=== PATIENT | male | born 1945 | race Caucasian/White ===

== ENCOUNTER 2021-05-12 07:55 | Outpatient (CLI) | payer OTHER, SELFPAY ==
--- NOTE | 2021-05-12 17:24 | WPDSIXMINUTE ---
Six Minute Walk Procedure Procedure Performed Pulmonary Stress Test (6 min walk) Six Minute Walk This is a 6 minutes walk test. The test was performed and interpreted in accordance with the 2014 ERS/ATS task force guidelines. The patient used his personal portable oxygen concentrator on 2 L at continuous flow while walking and a wheeled walker. Findings: The patient's resting oxygen saturation on 2 L NC measured by pulse oximetry was 96% and her heart rate was 66 bpm. Patient ambulated for 145 meters and oxygen saturation remained 96 to 98% on 2 L NC. Heart rate at the end of the study was 90 bpm. There are no prior studies for comparison.
== END 2021-05-12 07:56 | disposition home or self-care (01) ==
PROVIDERS: PCP Internal Medicine; Visit Provider Nurse Practitioner
DX: J44.9 Chronic obstructive pulmonary disease, unspecified (principal)
CPT/HCPCS: 94618

== ENCOUNTER 2022-01-25 12:27 | Outpatient (CLI) | payer OTHER, SELFPAY ==
[2022-01-25 13:00] VITALS: PULSE 95; O2SAT 94
[2022-01-25 13:02] VITALS: PULSE 117; O2SAT 87
[2022-01-25 13:03] VITALS: PULSE 120; O2SAT 87
[2022-01-25 13:04] VITALS: PULSE 118; O2SAT 93
[2022-01-25 13:06] VITALS: PULSE 119; O2SAT 92
[2022-01-25 13:15] VITALS: PULSE 96; O2SAT 95
--- NOTE | 2022-01-25 14:55 | HOMEO2EVAL ---
Evaluation was performed at [facility] Home Oxygen Evaluation RC: Home Oxygen (O2) Evaluation Start: 01/25/22 14:51 Freq: Status: Active Protocol: RPE Activity Type Activity Date Activity User E-Sign Co-Sign Detail Recorded Client Recorded Date Recorded By Document 01/25/22 13:00 [email or web address] [email or web address] 01/25/22 14:55 DJO Document 01/25/22 13:02 [email or web address] [email or web address] 01/25/22 14:55 DJO Document 01/25/22 13:03 [email or web address] [email or web address] 01/25/22 14:55 DJO Document 01/25/22 13:04 [email or web address] [email or web address] 01/25/22 14:55 DJO Document 01/25/22 13:06 [email or web address] [email or web address] 01/25/22 14:55 DJO Document 01/25/22 13:15 [email or web address] [email or web address] 01/25/22 14:55 DJO 01/25/22 01/25/22 01/25/22 13:00 13:02 13:03 Home O2 Evaluation Test Phase Resting Exercise Exercise Oxygen Delivery Room Air Room Air Nasal Cannula Oxygen Flow Rate (L/min) 1 Pulse Oximetry (90-100 %) 94 87 L 87 L Pulse Rate (60-100 beats/min) 95 117 H 120 H Ambulation Distance (feet) Ambulation Distance (meters) Home Oxygen Evaluation Comments Treatment Charges O2 Evaluation - Outpatient 01/25/22 01/25/22 01/25/22 13:04 13:06 13:15 Home O2 Evaluation Test Phase Exercise Exercise Resting Oxygen Delivery Nasal Cannula Nasal Cannula Room Air Oxygen Flow Rate (L/min) 2 2 Pulse Oximetry (90-100 %) 93 92 95 Pulse Rate (60-100 beats/min) 118 H 119 H 96 Ambulation Distance (feet) 600 Ambulation Distance (meters) 182.87 Home Oxygen Evaluation Comments PT REQUIRES 2 L WITH ACTIVITY. WALKED 6 MINUTES Treatment Charges
== END 2022-01-25 12:28 | disposition home or self-care (01) ==
LOC: ANHPFT 12:32
PROVIDERS: PCP Internal Medicine; Visit Provider Nurse Practitioner
DX: J44.9 Chronic obstructive pulmonary disease, unspecified (principal)
CPT/HCPCS: 94618